=== PATIENT | female | born 1995 | race African-American/Black ===

== ENCOUNTER 2017-03-23 19:05 | Emergency (ER) | payer OTHER ==
[2017-03-23 19:15] VITALS: BP 124/72
--- NOTE | 2017-03-23 19:30 | PHYS DOC ---
Adult General Chief Complaint Chief Complaint: ABDOMINAL PAIN HPI HPI Patient is a 21-year-old female who presents to the ER today secondary to having midepigastric abdominal pain earlier today now having left lower quadrant abdominal discomfort. Patient denies any fevers shakes chills nausea vomiting diarrhea chest pain shortness of breath cough cold or rhinorrhea. Patient reports her last by mouth intake was approximately one hour prior to arrival to the ED. Patient has any vaginal discharge or vaginal bleeding. Patient reports her last menstrual period was March 08, 2017. Patient reports no change in appetite. Patient has any dysuria frequency or urgency. Patient reports no pain when ambulating. Patient reports that she had to call out sick from work and is requesting a work note that she get some rest. Patient has any melena or bright red blood per rectum. Patient denies any hematuria. Patient reports the pain comes and goes. Patient reports she thought this was gas pain however did not go away and so that's why she came to the ED for evaluation. Review of systems: Constitutional: Denies fever or chills Eyes: Denies change in visual acuity, redness, or eye pain HENT: Denies nasal congestion or sore throat All other systems were reviewed and found to be within normal limits, except as documented in this note. Physical exam Constitutional: Well developed, well nourished, no acute distress, non-toxic appearance. HENT: Normocephalic, atraumatic, bilateral external ears normal, oropharynx moist, no oral exudates, nose normal. Eyes: PERRLA, EOMI, conjunctiva normal, no discharge. ABD: , mild tenderness palpation diffusely to the abdomen greatest in left lower quadrant. No rebound or guarding. 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 No Stock sign. Patient does not present with any signs or symptoms of be consistent with an acute surgical abdomen., Neck: supple, no stridor. Cardiovascular:Heart rate regular rhythm, Lungs & Thorax: Bilateral breath sounds clear to auscultation Abdomen: Bowel sounds normal, soft, mild tenderness, no masses, no pulsatile masses. Skin: Warm, dry, no erythema, no rash. Back: No tenderness, no CVA tenderness. Extremities: No tenderness, no cyanosis, no clubbing, ROM intact, no edema. Neurologic: Alert and oriented X 3, normal motor function, normal sensory function, no focal deficits noted. Psychologic: Affect normal, judgement normal, mood normal. Assessment and plan: 1. 21-year-old female who presents here today complaining of abdominal discomfort and cramping. Patient does not present with a acute surgical abdomen. Patient not present with signs or symptoms of be concerning for cholecystitis, pancreatic tenderness, diverticulitis, appendicitis, peritonitis. Patient will be given a dose of ibuprofen we will check a UA on the patient is well-appearing to test. Patient be discharged home in stable condition if UA is unremarkable. Patient has been given precautions regarding the remote possibility of an early surgical abdomen. Patient will return the ER if the pain is not completely resolved within 12 hours. Patient return the ER if the pain worsens in any way. Patient otherwise was follow-up with her family doctor for reevaluation of the symptoms recur over the next week to 2 weeks. Patient has been given ibuprofen assist her with her discomfort and will be discharged home with instructions take Tylenol or ibuprofen as needed for abdominal pain. Repeat physical exam at 8:30: Abdomen soft nontender nondistended no rebound or guarding. Patient is resting comfortable in bed. Patient be discharged home in stable condition. Allergies Allergies Allergies Coded Allergies Type Severity Reaction Last Updated Verified No Known Drug Allergies 03/23/17 No EKG EKG [] Radiology/Procedures Radiology/Procedures [] Course & Med Decision Making Course & Med Decision Making Pertinent Labs and Imaging studies reviewed. (See chart for details) [] Dragon Disclaimer Dragon Disclaimer This electronic medical record was generated, in whole or in part, using a voice recognition dictation system. Departure Departure: Impression: Primary Impression: Nonspecific abdominal pain Disposition: 01 HOME, SELF-CARE Condition: IMPROVED Referrals: [facility] (PCP) Patient Instructions: Abdominal Pain (Nonspecific) Additional Instructions: You have been seen and evaluated in the ER today for your stomach pain. The cause of your stomach pain is unclear at this time. There does not appear to be in acute or emergent issue causing her pain. Please follow-up with your doctor in the morning for reevaluation. Return the ER if you have any further questions or concerns. Scripts Ibuprofen (IBUPROFEN) 600 Mg Tablet 600 MG PO QID Y for PAIN, #20 Prov: ADRIANA BOLES MD 03/23/17 ADRIANA BOLES MD Mar 23, 2017 19:30
[2017-03-23] MEDS ORDERED: IBUPROFEN 600 MG TABLET. PO ONE (19:45)
[2017-03-23 20:37] LABS: BILIRUBIN,URINE NEG (NEG); CLARITY,URINE HAZY; COLOR,URINE YELLOW; GLUCOSE,URINE NEG (NEG); NITRITE,URINE NEG (NEG); UROBILINOGEN,URINE 0.2 mg/dL (0.2 mg/dL)
[2017-03-23 20:38] LABS: BACTERIA,URINE MOD /HPF (0-FEW); SQUAMOUS EPITHELIAL CELL,UR MOD /LPF; YEAST,URINE PRESENT /HPF
[2017-03-23] MEDS ORDERED: IBUP600T16 PO (20:48)
== END 2017-03-23 20:58 | disposition home or self-care (01) ==
LOC: ER 19:05
DX: R10.13 Epigastric pain (principal); R10.32 Left lower quadrant pain
CPT/HCPCS: 81001; 81025; 87086; 99284

== ENCOUNTER 2017-10-27 23:56 | Emergency (ER) | payer OTHER ==
[~2017-10-27] VITALS: Ht 165.1 cm; Wt 68.1 kg
[~2017-10-27 23:56] MED LIST: IBUP600T16 PO
--- NOTE | 2017-10-28 00:09 | ED.ADGEN ---
Past History Past Medical History: No Pertinent History Past Surgical History: No Surgical History Alcohol Use: None Drug Use: None Adult General Chief Complaint Chief Complaint ".. I ve been having chest pain... the last two days.. it been constant.. but worse at night... here on the Rt. .. it hurts with deep breaths.. nothing make s it better..." HPI HPI Patient is a 22 year old female who presents with above hx and complaints of chest pain. Pt. localizes pain to just Rt. of sternal border on the lower half. Pt. is reproduced with deep breath, movement and palpations. Pt. denies hx of of prior cardiac or chest pain complaints. Pt. denies hx of DVT or PE, or coagulopathy. Pt. states she had episodes of tachycardia. Pt. discharge from for " bad " knees. No hx of cough o fever. Pt. does not smoke . Pt. denies drug use. No travel or specific ill contacts. Pt. has no hx of immunosuppression. Patient denies any history of trauma. . No hx of HTN. Pt. normally follows at [facility]. Review of Systems Review of Systems Constitutional: Denies fever or chills [] Eyes: Denies change in visual acuity, redness, or eye pain [] HENT: Denies nasal congestion or sore throat [] Respiratory: Denies cough or shortness of breath [] Cardiovascular: No additional information not addressed in HPI [] GI: Denies abdominal pain, nausea, vomiting, bloody stools or diarrhea [] : Denies dysuria or hematuria [] Musculoskeletal: Denies back pain or joint pain [] Integument: Denies rash or skin lesions [] Neurologic: Denies headache, focal weakness or sensory changes [] Endocrine: Denies polyuria or polydipsia [] All other systems were reviewed and found to be within normal limits, except as documented in this note. Family History Family History Non-contributory Current Medications Current Medications Current Medications Medications (Trade) Dose Ordered Sig/Luly Start Time Stop Time Status Last Admin Dose Admin Aspirin (Children'S Aspirin) 324 mg 1X ONCE 10/28/17 00:30 10/28/17 00:31 DC 10/28/17 00:44 324 MG Ketorolac Tromethamine (Toradol) 30 mg 1X ONCE 10/28/17 02:00 10/28/17 02:01 DC 10/28/17 01:55 30 MG Lactated Ringer's 1,000 ml @ 1,000 mls/hr Q1H 10/28/17 00:30 10/28/17 01:29 DC 10/28/17 00:45 1,000 MLS/HR Allergies Allergies Allergies Coded Allergies Type Severity Reaction Last Updated Verified No Known Drug Allergies 03/23/17 No Physical Exam Physical Exam Constitutional: Well developed, well nourished, no acute distress, non-toxic appearance. [] HENT: Normocephalic, atraumatic, bilateral external ears normal, oropharynx moist, no oral exudates, nose normal. [] Eyes: PERRLA, EOMI, conjunctiva pale, no discharge. [] Neck: Normal range of motion, no tenderness, supple, no stridor. [] Cardiovascular: Tachycardia :Heart rate regular rhythm, no murmur [] Lungs & Thorax: Bilateral breath sounds equal at apexes on auscultation [] Chest wall tenderness just Rt. of sternal border lower half to sternum. Abdomen: Bowel sounds normal, soft, no tenderness, no masses, no pulsatile masses. [] Pt. denies epigastric pain. Skin: Warm, dry, no erythema, no rash. [] Back: No tenderness, no CVA tenderness. [] Extremities: No tenderness, no cyanosis, no clubbing, ROM intact, no edema. [] No cording appreciated. Neurologic: Alert and oriented X 3, normal motor function, normal sensory function, no focal deficits noted. [] Psychologic: Affect Anxious, judgement normal, mood normal. [] Current Patient Data Vital Signs Vital Signs Date Time Temp Pulse Resp B/P (MAP) Pulse Ox O2 Delivery O2 Flow Rate FiO2 10/27/17 23:56 98.4 70 18 99 Room Air Lab Results Laboratory Tests Test 10/27/17 23:25 10/28/17 00:10 10/28/17 00:30 POC Urine HCG, Qualitative hcg negative (Negative) Urine Collection Type Unknown Urine Color Yellow Urine Clarity Hazy Urine pH 5.5 Urine Specific [place] 1.025 Urine Protein Trace (NEG-TRACE) Urine Glucose (UA) Neg mg/dL (NEG) Urine Ketones (Stick) Neg mg/dL (NEG) Urine Blood Large (NEG) Urine Nitrite Neg (NEG) Urine Bilirubin Neg (NEG) Urine Urobilinogen Dipstick 1 mg/dL (0.2 mg/dL) Urine Leukocyte Esterase Neg (NEG) Urine RBC >40 /HPF (0-2) Urine WBC 1-4 /HPF (0-4) Urine Squamous Epithelial Cells Few /LPF Urine Bacteria 0 /HPF (0-FEW) Urine Opiates Screen Neg (NEG) Urine Methadone Screen Neg (NEG) Urine Barbiturates Neg (NEG) Urine Phencyclidine Screen Neg (NEG) Urine Amphetamine/Methamphetamine Neg (NEG) Urine Benzodiazepines Screen Neg (NEG) Urine Cocaine Screen Neg (NEG) Urine Cannabinoids Screen Neg (NEG) Urine Ethyl Alcohol Neg (NEG) White Blood Count 7.0 x10^3/uL (4.0-11.0) Red Blood Count 3.80 x10^6/uL (3.50-5.40) Hemoglobin 10.0 g/dL (12.0-15.5) L Hematocrit 31.4 % (36.0-47.0) L Mean Corpuscular Volume 83 fL (79-100) Mean Corpuscular Hemoglobin 26 pg (25-35) Mean Corpuscular Hemoglobin Concent 32 g/dL (31-37) Red Cell Distribution Width 17.3 % (11.5-14.5) H Platelet Count 315 x10^3/uL (140-400) Neutrophils (%) (Auto) 55 % (31-73) Lymphocytes (%) (Auto) 27 % (24-48) Monocytes (%) (Auto) 13 % (0-9) H Eosinophils (%) (Auto) 4 % (0-3) H Basophils (%) (Auto) 1 % (0-3) Neutrophils # (Auto) 3.9 x10^3uL (1.8-7.7) Lymphocytes # (Auto) 1.9 x10^3/uL (1.0-4.8) Monocytes # (Auto) 0.9 x10^3/uL (0.0-1.1) Eosinophils # (Auto) 0.3 x10^3/uL (0.0-0.7) Basophils # (Auto) 0.0 x10^3/uL (0.0-0.2) Prothrombin Time 10.3 SEC (9.4-11.4) Prothrombin Time INR 1.0 (0.9-1.1) PTT 30 SEC (23-33) D-Dimer (Jeni) 0.38 mg/L (0.00-0.50) Sodium Level 138 mmol/L (136-145) Potassium Level 3.8 mmol/L (3.5-5.1) Chloride Level 105 mmol/L (98-107) Carbon Dioxide Level 29 mmol/L (21-32) Anion Gap 4 (6-14) L Blood Urea Nitrogen 6 mg/dL (7-20) L Creatinine 0.8 mg/dL (0.6-1.0) Estimated GFR (Cockcroft-Gault) 109.6 Glucose Level 95 mg/dL (70-99) Calcium Level 9.0 mg/dL (8.5-10.1) Magnesium Level 2.2 mg/dL (1.8-2.4) Total Bilirubin 0.2 mg/dL (0.2-1.0) Direct Bilirubin 0.1 mg/dL (0.0-0.2) Aspartate Amino Transferase (AST) 45 U/L (15-37) H Alanine Aminotransferase (ALT) 35 U/L (14-59) Alkaline Phosphatase 84 U/L (46-116) Creatine Kinase 92 U/L (26-192) Creatine Kinase MB (Mass) < 0.5 ng/mL (0.0-3.6) Creatine Kinase MB Relative Index 0.5 % (0-4) Troponin I Quantitative < 0.017 ng/mL (0-0.055) TI-Ecs-S-Type Natriuretic Peptide 79 pg/mL (0-124) Total Protein 7.7 g/dL (6.4-8.2) Albumin 3.6 g/dL (3.4-5.0) Lipase 215 U/L (73-393) EKG EKG My interpretation EKG shows a sinus rhythm at 94 bpm with no acute morphology.[] Radiology/Procedures Radiology/Procedures My interpretation chest x-ray shows no acute cardiopulmonary findings.[] Course & Med Decision Making Course & Med Decision Making Pertinent Labs and Imaging studies reviewed. (See chart for details) Pt. to take Ibuprofen or NSAID for pain. Follow up with primary . Consider out pt stress test and further eval. if no improvement. Return if any jed. [] Final Impression Final Impression 1. Chest Pain[]-Chest Wall 2. Pleurisy 3. Anemia Dragon Disclaimer Dragon Disclaimer This electronic medical record was generated, in whole or in part, using a voice recognition dictation system. WINIFRED MACDONALD MD Oct 28, 2017 00:08
[2017-10-28] MEDS ORDERED: ASPIRIN 81 MG TAB.CHEW PO ONE (00:30)
[2017-10-28] MEDS ORDERED: IV RINGERS SOLUTION,LACTATED 1,000 ML IV SCH (00:30)
[2017-10-28 00:35] LABS: BARBITURATES NEG (NEG); BENZODIAZEPINES NEG (NEG); CANNABINOIDS NEG (NEG); COCAINE NEG (NEG); METHADONE NEG (NEG); OPIATES NEG (NEG); PHENCYCLIDINE NEG (NEG)
[2017-10-28 00:37] LABS: AMPHETAMINE/METHAMPHETAMINE NEG (NEG)
--- NOTE | 2017-10-28 00:39 | RAD ---
Chest PA and lateral: Reason for examination: Chest pain with tachycardia. The heart size is normal. Mediastinum is unremarkable. Lung amato are clear. No acute bony abnormalities are seen. Impression: No acute cardiopulmonary disease. Electronically signed by: Nolvia West MD (10/28/2017 12:35 AM) [facility] [id number]
[2017-10-28 00:41] LABS: BACTERIA,URINE 0 /HPF (0-FEW); BILIRUBIN,URINE NEG (NEG); CLARITY,URINE HAZY; COLOR,URINE YELLOW; GLUCOSE,URINE NEG (NEG); NITRITE,URINE NEG (NEG); RBC,URINE >40 /HPF (0-2); SQUAMOUS EPITHELIAL CELL,UR FEW /LPF; UROBILINOGEN,URINE 1 mg/dL (0.2 mg/dL)
[2017-10-28 00:53] LABS: BASO % 1 % (0-3); EOS # 0.3 x10^3/uL (0.0-0.7); EOS % 4 % (0-3); HEMATOCRIT 31.4 % (36.0-47.0); LYMPH # 1.9 x10^3/uL (1.0-4.8); LYMPH % 27 % (24-48); MEAN CORPUSCULAR HEMOGLOBIN 26 pg (25-35); MEAN CORPUSCULAR HGB CONC 32 g/dL (31-37); MEAN CORPUSCULAR VOLUME 83 fL (79-100); MONO # 0.9 x10^3/uL (0.0-1.1); MONO % 13 % (0-9); NEUT # 3.9 x10^3uL (1.8-7.7); NEUT % 55 % (31-73); PLATELET COUNT 315 x10^3/uL (140-400); RED CELL DISTRIBUTION WIDTH 17.3 % (11.5-14.5)
[2017-10-28 01:15] LABS: ALBUMIN 3.6 g/dL (3.4-5.0); ALK PHOS 84 U/L (46-116); ALT (SGPT) 35 U/L (14-59); ANION GAP 4 (6-14); AST (SGOT) 45 U/L (15-37); BLOOD UREA NITROGEN 6 mg/dL (7-20); CARBON DIOXIDE 29 mmol/L (21-32); CHLORIDE 105 mmol/L (98-107); CREATININE 0.8 mg/dL (0.6-1.0); DIRECT BILIRUBIN 0.1 mg/dL (0.0-0.2); GFR 109.6; GLUCOSE 95 mg/dL (70-99); LIPASE 215 U/L (73-393); MAGNESIUM 2.2 mg/dL (1.8-2.4); POTASSIUM 3.8 mmol/L (3.5-5.1); SODIUM 138 mmol/L (136-145); TOTAL BILIRUBIN 0.2 mg/dL (0.2-1.0); TOTAL PROTEIN 7.7 g/dL (6.4-8.2)
[2017-10-28] MEDS ORDERED: KETOROLAC 30 MG/ML VIAL. IV ONE (02:00)
[2017-10-28 02:08] VITALS: BP 113/62
--- NOTE | 2017-10-28 04:02 | EKG ---
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
== END 2017-10-28 02:08 | disposition home or self-care (01) ==
LOC: ER 23:56
DX: R09.1 Pleurisy (principal); D64.9 Anemia, unspecified
CPT/HCPCS: 36415; 71046; 80048; 80076; 80307; 81001; 81025; 82553; 83690; 83735; 83880; 84443; 84484; 85025; 85379; 85610; 85730; 93005; 96374; 99285; J1885; J7120; G0479